=== PATIENT | male | born 1980 | race Caucasian/White ===

== ENCOUNTER 2017-09-21 22:50 | Emergency (ER) | payer MEDICARE, MEDICAID ==
[~2017-09-21] VITALS: Ht 165.1 cm; Wt 65.8 kg
[~2017-09-21 22:50] MED LIST: AMBIEN 10 MG TA10 MG PO; ASPIRIN81 M2 PO; BACLOFEN 10MG T10 MG PO; BELSOMRA20 MG PO; BRINTELLIX10 MG PO; CARISOPRODOL 3350 MG; CARISOPRODOL 3350 MG PO; CELEBREX 200 M200 M1 PO; CLONAZEPAM 0.50.5 M1 PO; COLACE 100 MG100 MG PO; COREG CR20 MG PO; COREG CR40 MG; COREG25 MG PO; COZAAR 25 MG TA25 M1 PO; DESYREL50 MG PO; FLOMAX0.4 MG PO; FORTEO; HYDROCODON-ACE1 EAC3 PO; LISINOPRIL10 MG PO; LYRICA 50 MG50 MG PO; NEXIUM40 MG PO; NORCO 5-325 TA1 EACH PO; PERCOCET 5-3251 EACH PO; QUETIAPINE FUM300 M1 PO; RELAFEN500 MG PO; SEROQUEL 25 MG25 M1 PO; SEROQUEL PO; SEROQUEL400 MG PO; ZANAFLEX2 M2 PO; ZANAFLEX2 MG PO
[2017-09-21] MEDS ORDERED: ZANAFLEX2 MG PO (23:05)
[2017-09-21] MEDS ORDERED: AMBIEN 5 MG TABL5 M1 PO (23:06)
[2017-09-21 23:40] LABS: ABSOLUTE EOSINOPHILS 0.2 thou/uL (0.0-0.7); ABSOLUTE LYMPHOCYTES 1.9 thou/uL (0.8-5.3); ABSOLUTE MONOCYTES 0.6 thou/uL (0.0-1.2); BASOPHILS 0.5 %; EOSINOPHILS 2.1 %; HEMATOCRIT 45.6 % (42.0-52.0); HEMOGLOBIN 15.4 gm/dL (14.0-18.0); LYMPHOCYTES 24.5 %; MCH 33.6 pg (26.0-34.0); MCHC 33.8 g/dL (28.0-37.0); MCV 99.4 fL (80.0-100.0); MONOCYTES 7.4 %; MPV 8.7 fl. (7.2-11.1); NUCLEATED RBCS 0 /100WBC; PLATELET COUNT* 273 thou/uL (150-400); POLYS 65.5 %; RBC 4.58 mil/uL (4.50-6.00); RDW-CV 13.5 % (10.5-14.5); WBC 7.7 thou/uL (4.0-11.0)
[2017-09-21 23:46] LABS: URINE BILIRUBIN NEGATIVE (Negative); URINE BLOOD NEGATIVE (Negative); URINE CLARITY CLEAR; URINE COLOR YELLOW; URINE GLUCOSE-RANDOM NEGATIVE (Negative); URINE KETONES NEGATIVE (Negative); URINE LEUKOCYTES-REFLEX NEGATIVE (Negative); URINE NITRITE-REFLEX NEGATIVE (Negative); URINE PROTEIN NEGATIVE (Negative); URINE SPECIFIC GRAVITY 1.025 (1.005-1.030); URINE UROBILINOGEN 0.2 E.U./dl (0.2-1.0)
[2017-09-21 23:49] LABS: ANION GAP 8 mmol/L (7-16); BUN 10 mg/dL (7-18); CALCIUM 8.9 mg/dL (8.5-10.1); CHLORIDE 103 mmol/L (98-107); CO2 30 mmol/L (21-32); CREATININE 1.1 mg/dL (0.6-1.3); GLUCOSE 117 mg/dL (70-99); POTASSIUM 3.6 mmol/L (3.5-5.1); SODIUM 141 mmol/L (136-145)
[2017-09-21 23:56] LABS: ALBUMIN 4.1 g/dL (3.4-5.0); ALKALINE PHOSPHATASE 112 U/L (46-116); LIPASE 131 U/L (73-393); SGOT 13 U/L (15-37); SGPT 18 U/L (30-65); TOTAL BILIRUBIN 0.4 mg/dL (<0.1-1.0); TOTAL PROTEIN 7.7 g/dL (6.4-8.2); TROPONIN-I LEVEL <0.06 ng/mL (<0.06)
[2017-09-21 23:56] LABS: AMP/METHAMP Negative (Negative); BARBITURATES POSITIVE (Negative); BENZODIAZEPINES POSITIVE (Negative); COCAINE Negative (Negative); METHADONE Negative (Negative); OPIATES Negative (Negative); PCP Negative (Negative); THC Negative (Negative)
[2017-09-22] MEDS ORDERED: BUTALB-APAP-CA1 EACH PO (01:17)
[2017-09-22 01:34] VITALS: BP 106/60
--- NOTE | 2017-09-22 11:50 | EKG ---
[place] [address] ELECTROCARDIOGRAM REPORT Name: PETER STACK Room: [facility]#: [id number] Admission: 09/21/17 Attend Phys: Discharge: 09/22/17 Date of : 76 Report #: [id number] THIS REPORT FOR: //name// [facility] ED Test Date: 2017-09-21 Test Time: 23:36:31 Pat Name: PETER STACK Department: Room: Gender: Operation Shift Supervisor: MOHAN Pedroza : 1980 Requested By: Idalmis Lindquist Order Number: [id number] MD: William Ewing Measurements Intervals [place] Rate: 61 P: -36 SC: 142 QRS: -16 QRSD: 97 T: 49 QT: 426 QTc: 429 Interpretive Statements Sinus rhythm Inferior infarct, old Lateral leads are also involved No previous ECG available for comparison Electronically Signed On 09-22-2017 11:50:00 SUPERVISOR TUB[employer] by William Ewing [email or web address] <ELECTRONICALLY SIGNED> By: William Ewing MD, [facility] 09/22/17 1150 35 35 William Ewing MD, [facility] /EPI
== END 2017-09-22 01:37 | disposition home or self-care (01) ==
LOC: M.ERS 22:50
PROVIDERS: Physician Assistant
DX: S20.212A Contusion of left front wall of thorax, initial encounter (principal); R51 Headache; R55 Syncope and collapse; M81.0 Age-related osteoporosis without current pathological fracture; F03.90 Unspecified dementia, unspecified severity, without behavioral disturbance, psychotic disturbance, mood disturbance, and anxiety; Z88.5 Allergy status to narcotic agent; Z88.8 Allergy status to other drugs, medicaments and biological substances; Z88.1 Allergy status to other antibiotic agents; W19.XXXA Unspecified fall, initial encounter; Y93.89 Activity, other specified; Y92.89 Other specified places as the place of occurrence of the external cause; Y99.8 Other external cause status

== ENCOUNTER 2017-09-30 17:42 | Emergency (ER) | payer MEDICARE, MEDICAID ==
[~2017-09-30] VITALS: Ht 165.1 cm; Wt 68.0 kg
[~2017-09-30 17:42] MED LIST changes: +AMBIEN 5 MG TABL5 M1 PO; +BUTALB-APAP-CA1 EACH PO
[2017-09-30 17:58] VITALS: BP 120/77
[2017-09-30] MEDS ORDERED: NEXIUM40 MG PO (18:01)
[2017-09-30] MEDS ORDERED: HALDOL 0.5 MG0.5 MG PO (18:01)
[2017-09-30] MEDS ORDERED: BRINTELLIX20 MG PO (18:02)
== END 2017-09-30 20:12 | disposition left against medical advice (07) ==
LOC: M.ERS 17:42
DX: Z53.21 Procedure and treatment not carried out due to patient leaving prior to being seen by health care provider (principal)

== ENCOUNTER 2017-10-16 18:44 | Emergency (ER) | payer MEDICARE, MEDICAID ==
[~2017-10-16] VITALS: Ht 165.1 cm; Wt 68.0 kg
[~2017-10-16 18:44] MED LIST changes: +BRINTELLIX20 MG PO; +HALDOL 0.5 MG0.5 MG PO
[2017-10-16] MEDS ORDERED: BUTALB-APAP-CA1 EACH PO (19:26)
[2017-10-16 19:45] VITALS: BP 110/719
== END 2017-10-16 19:45 | disposition home or self-care (01) ==
LOC: M.ERS 18:44
DX: R51 Headache (principal); F03.90 Unspecified dementia, unspecified severity, without behavioral disturbance, psychotic disturbance, mood disturbance, and anxiety; Z88.5 Allergy status to narcotic agent; Z88.1 Allergy status to other antibiotic agents; Z88.8 Allergy status to other drugs, medicaments and biological substances

== ENCOUNTER 2017-10-31 17:58 | Emergency (ER) | payer MEDICARE, MEDICAID ==
[~2017-10-31] VITALS: Ht 165.1 cm; Wt 68.0 kg
[2017-10-31] MEDS ORDERED: BUTALB-APAP-CA1 EACH PO (18:37)
[2017-10-31 19:01] VITALS: BP 141/92
== END 2017-10-31 19:02 | disposition home or self-care (01) ==
LOC: M.ERS 17:58
DX: R51 Headache (principal); M81.0 Age-related osteoporosis without current pathological fracture; F03.90 Unspecified dementia, unspecified severity, without behavioral disturbance, psychotic disturbance, mood disturbance, and anxiety; F17.210 Nicotine dependence, cigarettes, uncomplicated; Z88.6 Allergy status to analgesic agent; Z88.5 Allergy status to narcotic agent; Z88.8 Allergy status to other drugs, medicaments and biological substances

== ENCOUNTER 2017-12-20 01:20 | Emergency (ER) | payer MEDICARE, MEDICAID ==
[~2017-12-20] VITALS: Ht 167.6 cm; Wt 68.5 kg
[2017-12-20] MEDS ORDERED: XANAX1 MG (01:35)
[2017-12-20 02:17] LABS: URINE BILIRUBIN NEGATIVE (Negative); URINE BLOOD NEGATIVE (Negative); URINE CLARITY CLEAR; URINE COLOR YELLOW; URINE GLUCOSE-RANDOM NEGATIVE (Negative); URINE KETONES NEGATIVE (Negative); URINE LEUKOCYTES-REFLEX NEGATIVE (Negative); URINE NITRITE-REFLEX NEGATIVE (Negative); URINE PROTEIN NEGATIVE (Negative); URINE UROBILINOGEN 0.2 E.U./dl (0.2-1.0)
[2017-12-20 02:22] LABS: ABSOLUTE EOSINOPHILS 0.1 thou/uL (0.0-0.7); ABSOLUTE LYMPHOCYTES 1.6 thou/uL (0.8-5.3); ABSOLUTE MONOCYTES 0.8 thou/uL (0.0-1.2); ABSOLUTE NEUTROPHILS 6.9 thou/uL (1.6-8.1); BASOPHILS 0.2 %; EOSINOPHILS 0.7 %; HEMATOCRIT 43.3 % (42.0-52.0); HEMOGLOBIN 14.6 gm/dL (14.0-18.0); LYMPHOCYTES 17.5 %; MCH 33.8 pg (26.0-34.0); MCHC 33.7 g/dL (28.0-37.0); MCV 100.5 fL (80.0-100.0); MONOCYTES 8.4 %; MPV 8.8 fl. (7.2-11.1); NUCLEATED RBCS 0 /100WBC; PLATELET COUNT* 211 thou/uL (150-400); POLYS 73.2 %; RBC 4.31 mil/uL (4.50-6.00); RDW-CV 13.2 % (10.5-14.5); WBC 9.4 thou/uL (4.0-11.0)
[2017-12-20 02:38] LABS: ACETAMINOPHEN < 2 ug/mL (10-30); ALCOHOL < 10 mg/dL (<10); SALICYLATE 3.1 mg/dL (2.8-20.0)
[2017-12-20 02:39] LABS: AMP/METHAMP Negative (Negative); BARBITURATES Negative (Negative); BENZODIAZEPINES POSITIVE (Negative); COCAINE Negative (Negative); METHADONE Negative (Negative); OPIATES Negative (Negative); PCP Negative (Negative); THC Negative (Negative)
[2017-12-20 02:52] LABS: CALCIUM 9.2 mg/dL (8.5-10.1); CREATININE 0.9 mg/dL (0.6-1.3)
[2017-12-20 02:57] LABS: TOTAL BILIRUBIN 0.2 mg/dL (<0.1-1.0); TOTAL PROTEIN 7.5 g/dL (6.4-8.2)
[2017-12-20] MEDS ORDERED: BUTALB-APAP-CA1 EACH PO (04:48)
[2017-12-20 04:57] VITALS: BP 105/73
== END 2017-12-20 04:58 | disposition home or self-care (01) ==
LOC: M.ERS 01:20
PROVIDERS: Emergency Medicine Emergency Medical Services
DX: G43.909 Migraine, unspecified, not intractable, without status migrainosus (principal); F03.90 Unspecified dementia, unspecified severity, without behavioral disturbance, psychotic disturbance, mood disturbance, and anxiety; F17.210 Nicotine dependence, cigarettes, uncomplicated; Z88.6 Allergy status to analgesic agent; Z88.8 Allergy status to other drugs, medicaments and biological substances

== ENCOUNTER 2017-12-31 21:53 | Emergency (ER) | payer MEDICARE, MEDICAID ==
[~2017-12-31] VITALS: Ht 165.1 cm; Wt 74.8 kg
[~2017-12-31 21:53] MED LIST changes: +XANAX1 MG
[2017-12-31] MEDS ORDERED: BUTALB-APAP-CA1 EACH PO (22:11)
[2017-12-31 22:15] VITALS: BP 140/89
== END 2017-12-31 22:15 | disposition home or self-care (01) ==
LOC: M.ERS 21:53
DX: G43.909 Migraine, unspecified, not intractable, without status migrainosus (principal); F17.210 Nicotine dependence, cigarettes, uncomplicated; Z88.6 Allergy status to analgesic agent; Z88.8 Allergy status to other drugs, medicaments and biological substances

== ENCOUNTER 2018-02-04 16:27 | Emergency (ER) | payer MEDICARE, MEDICAID ==
[~2018-02-04] VITALS: Ht 167.6 cm; Wt 68.0 kg
[2018-02-04 16:49] LABS: URINE BILIRUBIN NEGATIVE (Negative); URINE BLOOD NEGATIVE (Negative); URINE CLARITY CLEAR; URINE COLOR YELLOW; URINE GLUCOSE-RANDOM NEGATIVE (Negative); URINE KETONES NEGATIVE (Negative); URINE LEUKOCYTES-REFLEX NEGATIVE (Negative); URINE NITRITE-REFLEX NEGATIVE (Negative); URINE PROTEIN NEGATIVE (Negative); URINE SPECIFIC GRAVITY <= 1.005 (1.005-1.030); URINE UROBILINOGEN 0.2 E.U./dl (0.2-1.0)
[2018-02-04] MEDS ORDERED: BUTALB-APAP-CA1 EACH PO (17:07)
[2018-02-04 17:15] VITALS: BP 143/66
== END 2018-02-04 17:16 | disposition home or self-care (01) ==
LOC: M.ERS 16:27
PROVIDERS: Nurse Practitioner Family
DX: G89.29 Other chronic pain (principal); Z76.0 Encounter for issue of repeat prescription; G43.909 Migraine, unspecified, not intractable, without status migrainosus; F17.210 Nicotine dependence, cigarettes, uncomplicated; Z88.8 Allergy status to other drugs, medicaments and biological substances; Z88.6 Allergy status to analgesic agent; N23 Unspecified renal colic

== ENCOUNTER 2018-04-01 21:12 | Emergency (ER) | payer MEDICARE, MEDICAID ==
[~2018-04-01] VITALS: Ht 167.6 cm; Wt 68.0 kg
[2018-04-01] MEDS ORDERED: ADDERALL 10 MG10 MG (21:21)
[2018-04-01 21:52] LABS: URINE BILIRUBIN NEGATIVE (Negative); URINE BLOOD NEGATIVE (Negative); URINE CLARITY CLEAR; URINE COLOR YELLOW; URINE GLUCOSE-RANDOM NEGATIVE (Negative); URINE KETONES NEGATIVE (Negative); URINE LEUKOCYTES-REFLEX NEGATIVE (Negative); URINE NITRITE-REFLEX NEGATIVE (Negative); URINE PROTEIN NEGATIVE (Negative); URINE SPECIFIC GRAVITY <= 1.005 (1.005-1.030); URINE UROBILINOGEN 0.2 E.U./dl (0.2-1.0)
[2018-04-01] MEDS ORDERED: BUTALB-APAP-CA1 EACH PO (22:42)
[2018-04-01 22:49] VITALS: BP 128/83
== END 2018-04-01 22:49 | disposition home or self-care (01) ==
LOC: M.ERS 21:12
PROVIDERS: Nurse Practitioner Family
DX: R33.9 Retention of urine, unspecified (principal); Z76.0 Encounter for issue of repeat prescription; G43.909 Migraine, unspecified, not intractable, without status migrainosus; F03.90 Unspecified dementia, unspecified severity, without behavioral disturbance, psychotic disturbance, mood disturbance, and anxiety; M81.0 Age-related osteoporosis without current pathological fracture; F17.210 Nicotine dependence, cigarettes, uncomplicated; Z88.8 Allergy status to other drugs, medicaments and biological substances; Z88.6 Allergy status to analgesic agent; Z87.442 Personal history of urinary calculi

== ENCOUNTER 2018-10-19 19:09 | Emergency (ER) | payer MEDICARE, MEDICAID ==
[~2018-10-19] VITALS: Ht 165.1 cm; Wt 55.3 kg
[~2018-10-19 19:09] MED LIST changes: +ADDERALL 10 MG10 MG
[2018-10-19] MEDS ORDERED: VOLTAREN GEL 1100 G1 TOP (19:30)
[2018-10-19] MEDS ORDERED: ROBAXIN500 MG PO (19:30)
[2018-10-19 19:39] VITALS: BP 130/77
== END 2018-10-19 19:40 | disposition home or self-care (01) ==
LOC: M.ERS 19:09
DX: G89.29 Other chronic pain (principal); M54.9 Dorsalgia, unspecified; F03.90 Unspecified dementia, unspecified severity, without behavioral disturbance, psychotic disturbance, mood disturbance, and anxiety; G43.909 Migraine, unspecified, not intractable, without status migrainosus; F17.210 Nicotine dependence, cigarettes, uncomplicated; Z88.5 Allergy status to narcotic agent; Z88.8 Allergy status to other drugs, medicaments and biological substances

== ENCOUNTER 2019-09-01 18:44 | Emergency (ER) | payer MEDICARE, MEDICAID ==
[~2019-09-01] VITALS: Ht 165.1 cm; Wt 70.3 kg
[~2019-09-01 18:44] MED LIST changes: +ATIVAN0.5 MG PO; +ROBAXIN500 MG PO; +VOLTAREN GEL 1100 G1 TOP; +ZYPREXA5 MG PO
[2019-09-01] MEDS ORDERED: GEODON40 MG PO (19:15)
[2019-09-01] MEDS ORDERED: BENZTROPINE ME0.5 MG PO (19:16)
[2019-09-01] MEDS ORDERED: BUTALB-APAP-CA1 EACH PO (19:22)
[2019-09-01 20:10] VITALS: BP 136/77
== END 2019-09-01 20:10 | disposition home or self-care (01) ==
LOC: M.ERS 18:44
DX: G43.909 Migraine, unspecified, not intractable, without status migrainosus (principal); Z76.0 Encounter for issue of repeat prescription; F17.210 Nicotine dependence, cigarettes, uncomplicated; Z88.1 Allergy status to other antibiotic agents; Z88.5 Allergy status to narcotic agent; Z88.6 Allergy status to analgesic agent; Z88.8 Allergy status to other drugs, medicaments and biological substances; Z87.442 Personal history of urinary calculi

== ENCOUNTER 2019-09-12 17:56 | Emergency (ER) | payer MEDICARE, MEDICAID ==
[~2019-09-12] VITALS: Ht 167.6 cm; Wt 70.3 kg
[~2019-09-12 17:56] MED LIST changes: +BENZTROPINE ME0.5 MG PO; +GEODON40 MG PO
[2019-09-12 18:43] VITALS: BP 122/84
== END 2019-09-12 18:44 | disposition home or self-care (01) ==
LOC: M.ERS 17:56
DX: G43.909 Migraine, unspecified, not intractable, without status migrainosus (principal); Z76.0 Encounter for issue of repeat prescription; N40.0 Benign prostatic hyperplasia without lower urinary tract symptoms; F17.210 Nicotine dependence, cigarettes, uncomplicated; Z88.5 Allergy status to narcotic agent; Z88.6 Allergy status to analgesic agent; Z88.8 Allergy status to other drugs, medicaments and biological substances; Z87.442 Personal history of urinary calculi

== ENCOUNTER 2020-04-08 21:59 | Emergency (ER) | payer MEDICARE, MEDICAID ==
[~2020-04-08] VITALS: Ht 165.1 cm; Wt 82.1 kg
[2020-04-08] MEDS ORDERED: BELSOMRA20 MG (22:17)
[2020-04-08] MEDS ORDERED: BUSPIRONE HCL15 MG (22:17)
[2020-04-08] MEDS ORDERED: REMERON15 M2 (22:18)
[2020-04-08] MEDS ORDERED: NEXIUM 40 MG CA40 M1 (22:18)
[2020-04-08] MEDS ORDERED: RISPERDAL 1 MG T1 MG (22:19)
[2020-04-08] MEDS ORDERED: BRINTELLIX10 MG ×2 (22:19→22:20)
[2020-04-08] MEDS ORDERED: OXCARBAZEPINE150 MG PO (22:21)
[2020-04-08 22:22] VITALS: BP 147/81
[2020-04-08] MEDS ORDERED: XANAX 0.5 MG0.5 M1 PO (22:32)
== END 2020-04-08 22:51 | disposition home or self-care (01) ==
LOC: M.ERS 21:59
DX: F41.9 Anxiety disorder, unspecified (principal); G43.909 Migraine, unspecified, not intractable, without status migrainosus; M81.0 Age-related osteoporosis without current pathological fracture; F03.90 Unspecified dementia, unspecified severity, without behavioral disturbance, psychotic disturbance, mood disturbance, and anxiety; F17.210 Nicotine dependence, cigarettes, uncomplicated; Z87.442 Personal history of urinary calculi; Z88.6 Allergy status to analgesic agent; Z88.8 Allergy status to other drugs, medicaments and biological substances

== ENCOUNTER 2020-04-26 21:21 | Emergency (ER) | payer MEDICARE, MEDICAID ==
[~2020-04-26] VITALS: Ht 165.1 cm; Wt 84.4 kg
[~2020-04-26 21:21] MED LIST changes: +BELSOMRA20 MG; +BRINTELLIX10 MG; +BUSPIRONE HCL15 MG; +NEXIUM 40 MG CA40 M1; +OXCARBAZEPINE150 MG PO; +REMERON15 M2; +RISPERDAL 1 MG T1 MG; +XANAX 0.5 MG0.5 M1 PO
[2020-04-26 21:30] VITALS: BP 145/70
[2020-04-26] MEDS ORDERED: PROAIR HFA8.5 GM INH (21:35)
[2020-04-26] MEDS ORDERED: SOMA350 MG PO (21:35)
[2020-04-26] MEDS ORDERED: NORCO 5-325 TA1 EAC2 PO ×2 (21:43→21:49)
== END 2020-04-26 21:56 | disposition home or self-care (01) ==
LOC: M.ERS 21:21
DX: K01.1 Impacted teeth (principal); K08.89 Other specified disorders of teeth and supporting structures; M41.9 Scoliosis, unspecified; G43.909 Migraine, unspecified, not intractable, without status migrainosus; N40.0 Benign prostatic hyperplasia without lower urinary tract symptoms; F17.210 Nicotine dependence, cigarettes, uncomplicated; Z88.5 Allergy status to narcotic agent; Z88.6 Allergy status to analgesic agent; Z88.8 Allergy status to other drugs, medicaments and biological substances; Z87.442 Personal history of urinary calculi

== ENCOUNTER 2020-05-30 17:55 | Emergency (ER) | payer MEDICARE, MEDICAID ==
[~2020-05-30] VITALS: Ht 165.1 cm; Wt 83.5 kg
[~2020-05-30 17:55] MED LIST changes: +NORCO 5-325 TA1 EAC2 PO; +PROAIR HFA8.5 GM INH; +SOMA350 MG PO
[2020-05-30 20:06] LABS: URINE BILIRUBIN NEGATIVE (Negative); URINE BLOOD TRACE (Negative); URINE CLARITY CLEAR; URINE COLOR YELLOW; URINE GLUCOSE-RANDOM NEGATIVE (Negative); URINE KETONES NEGATIVE (Negative); URINE LEUKOCYTES NEGATIVE (Negative); URINE NITRITE NEGATIVE (Negative); URINE PROTEIN NEGATIVE (Negative); URINE SPECIFIC GRAVITY 1.015 (1.005-1.030); URINE UROBILINOGEN 0.2 E.U./dl (0.2-1.0)
[2020-05-30 20:30] LABS: ABSOLUTE EOSINOPHILS 0.3 thou/uL (0.0-0.7); ABSOLUTE MONOCYTES 0.7 thou/uL (0.0-1.2); ABSOLUTE NEUTROPHILS 3.7 thou/uL (1.6-8.1); BASOPHILS 0.7 %; EOSINOPHILS 4.9 %; HEMATOCRIT 38.7 % (42.0-52.0); HEMOGLOBIN 12.8 gm/dL (14.0-18.0); LYMPHOCYTES 29.1 %; MCH 31.3 pg (26.0-34.0); MCHC 33.1 g/dL (28.0-37.0); MCV 94.6 fL (80.0-100.0); MONOCYTES 10.1 %; MPV 7.1 fl. (7.2-11.1); NUCLEATED RBCS 0 /100WBC; PLATELET COUNT* 259 thou/uL (150-400); POLYS 55.2 %; RBC 4.09 mil/uL (4.50-6.00); RDW-CV 12.6 % (10.5-14.5); WBC 6.8 thou/uL (4.0-11.0)
[2020-05-30 20:38] LABS: CALCIUM 8.8 mg/dL (8.5-10.1); CREATININE 1.1 mg/dL (0.6-1.3); POTASSIUM 3.7 mmol/L (3.5-5.1)
[2020-05-30 20:43] LABS: ALBUMIN 3.8 g/dL (3.4-5.0); TOTAL BILIRUBIN 0.1 mg/dL (<0.1-1.0); TOTAL PROTEIN 7.2 g/dL (6.4-8.2)
[2020-05-30 21:21] VITALS: BP 133/66
== END 2020-05-30 21:22 | disposition home or self-care (01) ==
LOC: M.ERS 17:55
PROVIDERS: Personal Emergency Response Attendant; Physician Assistant
DX: N20.0 Calculus of kidney (principal); D64.9 Anemia, unspecified; G43.909 Migraine, unspecified, not intractable, without status migrainosus; I34.1 Nonrheumatic mitral (valve) prolapse; F17.210 Nicotine dependence, cigarettes, uncomplicated; Z88.6 Allergy status to analgesic agent; Z88.5 Allergy status to narcotic agent; Z88.8 Allergy status to other drugs, medicaments and biological substances; Z79.899 Other long term (current) drug therapy

== ENCOUNTER 2020-06-08 13:41 | Emergency (ER) | payer MEDICARE, MEDICAID ==
[~2020-06-08] VITALS: Ht 165.1 cm; Wt 84.4 kg
[2020-06-08 14:09] VITALS: BP 129/85
== END 2020-06-08 14:10 | disposition home or self-care (01) ==
LOC: M.ERS 13:41
DX: K08.89 Other specified disorders of teeth and supporting structures (principal); G43.909 Migraine, unspecified, not intractable, without status migrainosus; N40.0 Benign prostatic hyperplasia without lower urinary tract symptoms; M41.9 Scoliosis, unspecified; F17.210 Nicotine dependence, cigarettes, uncomplicated; Z88.6 Allergy status to analgesic agent; Z88.5 Allergy status to narcotic agent; Z88.8 Allergy status to other drugs, medicaments and biological substances; Z87.442 Personal history of urinary calculi

== ENCOUNTER 2020-08-05 04:51 | Emergency (ER) | payer MEDICARE, MEDICAID ==
[~2020-08-05] VITALS: Ht 165.1 cm; Wt 86.2 kg
[2020-08-05 05:33] VITALS: BP 142/92
== END 2020-08-05 05:34 | disposition home or self-care (01) ==
LOC: M.ERS 04:51
DX: F41.9 Anxiety disorder, unspecified (principal); G43.909 Migraine, unspecified, not intractable, without status migrainosus; M41.9 Scoliosis, unspecified; N40.0 Benign prostatic hyperplasia without lower urinary tract symptoms; F17.210 Nicotine dependence, cigarettes, uncomplicated; Z88.6 Allergy status to analgesic agent; Z88.5 Allergy status to narcotic agent; Z88.8 Allergy status to other drugs, medicaments and biological substances; Z87.442 Personal history of urinary calculi

== ENCOUNTER 2020-08-29 01:04 | Emergency (ER) | payer MEDICARE, MEDICAID ==
[~2020-08-29] VITALS: Ht 165.1 cm; Wt 86.2 kg
[2020-08-29 01:11] VITALS: BP 137/76
== END 2020-08-29 01:51 | disposition home or self-care (01) ==
LOC: M.ERS 01:04
DX: R68.84 Jaw pain (principal); F17.210 Nicotine dependence, cigarettes, uncomplicated; G43.909 Migraine, unspecified, not intractable, without status migrainosus; Z79.899 Other long term (current) drug therapy; Z88.5 Allergy status to narcotic agent; Z88.8 Allergy status to other drugs, medicaments and biological substances

== ENCOUNTER 2021-02-02 00:16 | Emergency (ER) | payer MEDICARE, MEDICAID ==
[~2021-02-02] VITALS: Ht 165.1 cm; Wt 91.2 kg
[2021-02-02] MEDS ORDERED: CHANTIX1 MG PO (00:27)
[2021-02-02] MEDS ORDERED: DUTASTERIDE0.5 MG PO (00:28)
[2021-02-02] MEDS ORDERED: REMERON30 M1 PO (00:29)
[2021-02-02 01:03] VITALS: BP 170/98
== END 2021-02-02 01:03 | disposition home or self-care (01) ==
LOC: M.ERS 00:16
DX: F41.9 Anxiety disorder, unspecified (principal); F17.210 Nicotine dependence, cigarettes, uncomplicated; M81.0 Age-related osteoporosis without current pathological fracture; G43.909 Migraine, unspecified, not intractable, without status migrainosus; Z87.442 Personal history of urinary calculi; Z88.6 Allergy status to analgesic agent; Z88.5 Allergy status to narcotic agent; Z88.8 Allergy status to other drugs, medicaments and biological substances; Z79.899 Other long term (current) drug therapy